=== PATIENT | female | born 1985 | race African-American/Black ===

== ENCOUNTER 2016-09-18 21:50 | Emergency (ER) | payer OTHER ==
[2016-09-18] MEDS ORDERED: 0.9 % SODIUM CHLORIDE 1,000 ML IV ONE (21:53)
--- NOTE | 2016-09-18 22:02 | ED Physician Documentation ---
General Adult - HISTORIAN Historian: patient - HPI Stated Complaint: body pain Chief Complaint: General Adult Onset: hours Timing: still present Severity: moderate Further Comments: yes (Pt is a 31 yo aa female who states that she has hx sickle cell disease and presents with generalized body pain. Pt has had no recent illness, no sore throat or cough. No fever.) - ROS CONST: weakness, other (generalized "all over" body pain) EYES/ENT: none CVS/RESP: none GI/: none MS/SKIN/LYMPH: none - PAST HX Past History: other (sickle cell) Surgeries/Procedures: Allergies/Adverse Reactions: Allergies Allergy/AdvReac Type Severity Reaction Status Date / Time No Known Allergies Allergy Verified 09/18/16 22:29 Home Medications: Ambulatory Orders Medication Instructions Recorded NK [NK] 09/18/16 - SOCIAL HX Smoking History: cigarettes - FAMILY HX Family History: Yes - VITAL SIGNS Vital Signs: Vital Signs Temp Pulse Resp BP Pulse Ox 113/70 05/24/16 11:16 - REVIEWED ASSESSMENTS Nursing Assessment Reviewed: Yes Vitals Reviewed: Yes Progress - Progress Progress: Rapid strep - neg Influenza A & B - neg Benadryl 25 mg IV NS IVF 1 L x 2 Toradol 30 mg IV Dilaudid 1 mg IV improved Sickle cells not seen on peripheral blood. - EKG/XRAY/CT XRAY: chest (negative) ED Results Lab/Radiology - Orders Orders: ED Orders Category Date Time Status CBC/PLATELET/DIFF Routine Lab 09/18/16 Ordered CMP [CMP] Routine Lab 09/18/16 Ordered 0.9 % Sodium Chloride [Normal Saline] 1,000 ml Med 09/18/16 21:53 Discontinued IV .STK-MED 0.9 % Sodium Chloride [Normal Saline] 1,000 ml Med 09/18/16 21:57 Active IV Q1H Ketorolac Tromethamine [Toradol] Med 09/18/16 21:59 Discontinued 30 mg IVP NOW ONE diphenhydrAMINE HCL [Benadryl] Med 09/18/16 21:58 Discontinued 25 mg IVP NOW ONE General Adult Physical Exam - PHYSICAL EXAM GENERAL APPEARANCE: moderate distress EENT: pharynx normal NECK: normal inspection, supple RESPIRATORY: no resp distress, chest non-tender, breath sounds normal CVS: tachycardia ABDOMEN: soft, no organomegaly, normal bowel sounds BACK: normal inspection, no CVA tenderness SKIN: warm/dry, normal color EXTREMITIES: non-tender, normal range of motion, no evidence of injury NEURO: oriented X3, motor nml, sensation nml Discharge Home Medications: Ambulatory Orders NK [NK] 09/18/16
[2016-09-18 22:24] LABS: BASOPHILS % 0.3 (0.0-1.5); EOSINOPHILS % 2.6 % (0.0-6.8); MEAN CORPUSCULAR HEMOGLOBIN 29.3 pg (28.0-34.0); MEAN CORPUSCULAR VOLUME 87.1 fl (80.0-100.0); MONOCYTES % 4.2 % (0.0-11.0); NEUTROPHILS # 8.1 # k/uL (1.4-7.7)
[2016-09-18 22:41] LABS: eGFR (African) > 60; eGFR (Non-African) > 60
[2016-09-18] MEDS: diphenhydrAMINE HCL 50 MG/ML VIAL IVP ONE (22:51)
[2016-09-18] MEDS: 0.9 % SODIUM CHLORIDE 1,000 ML IV ONE ×2 (22:51→23:09)
[2016-09-18] MEDS: HYDROmorphone HCL/PF 1 MG/ML DISP.SYRIN IVP ONE (22:52)
[2016-09-18] MEDS: KETOROLAC TROMETHAMINE 30 MG/1ML VIAL IVP ONE (22:52)
[2016-09-18] MEDS: VANCOMYCIN HCL 1.25 GM in 0.9 % SODIUM CHLORIDE 500 ML IV ONE (22:53)
--- NOTE | 2016-09-18 23:38 | Diagnostic Imaging Report ---
AURA JUAN [facility] [address] [facility] [address] [address] Report Submission Date: Sep 18, 2016 11:24:32 PM CDT Patient Study Name: MARTA LEON Date: Sep 18, 2016 11:13:13 PM CDT Modality Type: CR Gender: M Description: CHEST : 83 Institution: [facility] Physician: AURA JUAN Portable view chest Clinical history: Short of breath Findings: Heart size is within normal limits. No pleural effusion, pneumothorax or alveolar consolidation. Impression: Negative Electronically signed on Sep 18, 2016 11:24:32 PM CDT by: Dank BAILEY
[2016-09-19] MEDS ORDERED: 0.9 % SODIUM CHLORIDE 500 ML IV ONE (00:10)
[2016-09-19] MEDS: 0.9 % SODIUM CHLORIDE 500 ML IV ONE (00:14)
[2016-09-19] MEDS: HYDROmorphone HCL/PF 1 MG/ML DISP.SYRIN IVP ONE (00:19)
[2016-09-19 01:13] VITALS: BP 117/70
== END 2016-09-19 01:00 ==
LOC: ED 21:50
DX: D57.80 Other sickle-cell disorders without crisis (principal); R52 Pain, unspecified
CPT/HCPCS: 71010; 80053; 84443; 85025; 87070; 87400; 87880; J1170; J1200; J1885; J7030; J7060; 96361; 96374; 96375; 99283; S1016

== ENCOUNTER 2017-01-19 17:01 | Emergency (ER) | payer SELFPAY ==
--- NOTE | 2017-01-19 17:17 | ED Physician Documentation ---
General Adult - HISTORIAN Historian: patient - HPI Stated Complaint: R arm pain Chief Complaint: General Adult Onset: days ago Timing: still present Severity: moderate Further Comments: yes (Pt is a 31 yo female with R arm pain. Pain is medial to elbow and just distal to the elbow. 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 She says she uses the dust deshpande, holding it in a specific way all day long, and that pain first began to occur when she was doing this.) - ROS CONST: no problems EYES/ENT: none CVS/RESP: none GI/: none MS/SKIN/LYMPH: other (R arm pain) - PAST HX Past History: other (anxiety/depression) Surgeries/Procedures: other (R wrist surgery) Allergies/Adverse Reactions: Allergies Allergy/AdvReac Type Severity Reaction Status Date / Time No Known Allergies Allergy Verified 01/19/17 17:14 Home Medications: Ambulatory Orders Medication Instructions Recorded NK [NK] 09/18/16 - SOCIAL HX Smoking History: cigarettes - FAMILY HX Family History: No - VITAL SIGNS Vital Signs: Vital Signs Temp Pulse Resp BP Pulse Ox 117/70 09/19/16 01:10 - REVIEWED ASSESSMENTS Nursing Assessment Reviewed: Yes Vitals Reviewed: Yes Progress - Progress Progress: Toradol 60 mg IM Medial Epicondylitis, R elbow. Ibuprofen 200 mg. Take 3 tablets by mouth every 8 hrs with food. NITHIN wrap (like tennis elbow strap) Tennis elbow strap. General Adult Physical Exam - PHYSICAL EXAM GENERAL APPEARANCE: moderate distress NECK: normal inspection, supple RESPIRATORY: no resp distress, chest non-tender, breath sounds normal CVS: reg rate & rhythm, heart sounds normal BACK: normal inspection SKIN: warm/dry, normal color EXTREMITIES: other (tenderness medial epicondyle, increased with forearm supination against resistance) NEURO: oriented X3, motor nml, sensation nml Discharge Clincal Impression: Medial epicondylitis, right elbow Referrals: Primary Doctor,No [Primary Care Provider] - Home Medications: Ambulatory Orders NK [NK] 09/18/16 Condition: Stable Disposition: 01 HOME, SELF-CARE Decision to Admit: NO Decision Time: 18:22
[2017-01-19] MEDS: KETOROLAC TROMETHAMINE 60 MG/2 ML VIAL IM ONE (17:30)
--- NOTE | 2017-01-19 18:12 | Diagnostic Imaging Report ---
CHANDLER DUNCAN [facility] [address] [facility].[address] [address] Report Submission Date: Jan 19, 2017 6:08:45 PM CDT Patient Study Name: MARTA LEON Date: Jan 19, 2017 5:54:16 PM CDT Modality Type: CR Gender: M Description: UPPER EXTREMITY : 83 Institution: [facility] Physician: CHANDLER DUNCAN Examination: Plain film elbow History: Elbow discomfort Comparison exams: None provided Findings: 2 views of the elbow demonstrate normal cortical margins. No fracture. No dislocation. Radial head is within normal limits. No joint effusion Impression: No acute osseous abnormality. Electronically signed on Jan 19, 2017 6:08:45 PM CDT by: Willie BAILEY
[2017-01-19 18:49] VITALS: BP 120/74
== END 2017-01-19 18:43 | disposition home or self-care (01) ==
LOC: ED 17:01
DX: M77.01 Medial epicondylitis, right elbow (principal)
CPT/HCPCS: 73070; J1885; 96372; 99283

== ENCOUNTER 2017-03-26 14:06 | Emergency (ER) | payer SELFPAY ==
--- NOTE | 2017-03-26 14:10 | ED Physician Documentation ---
General Adult - HISTORIAN Historian: patient - HPI Stated Complaint: Nausea/vomiting Chief Complaint: General Adult Onset: hours Timing: still present Severity: moderate Further Comments: yes (Pt is a 31 yo female with n/v and generalized body ache. Pt states that she has a hx sickle cell anemia, but it is unclear if this dx is correct or if she may have sickle cell trait. Pt has not had cough or fever or urinary sx. Pt has not had joint pain per se.) - ROS CONST: other (malaise, body ache) EYES/ENT: none CVS/RESP: none GI/: vomiting, nausea MS/SKIN/LYMPH: none - PAST HX Past History: other (possible sickle cell or sickle cell trait) Surgeries/Procedures: Allergies/Adverse Reactions: Allergies Allergy/AdvReac Type Severity Reaction Status Date / Time No Known Allergies Allergy Verified 03/26/17 14:39 Home Medications: Ambulatory Orders Medication Instructions Recorded Ciprofloxacin HCl [Cipro] 500 mg PO BID #14 tablet 03/26/17 - SOCIAL HX Smoking History: cigarettes - FAMILY HX Family History: No - VITAL SIGNS Vital Signs: Vital Signs Temp Pulse Resp BP Pulse Ox 120/74 01/19/17 18:43 - REVIEWED ASSESSMENTS Nursing Assessment Reviewed: Yes Vitals Reviewed: Yes Progress - Progress Progress: 1 L NS IVF Zofran 4 mg IV CBC showed normal indices, with no evidence of sickle cells on peripheral smear. U/A - pos nitrites, 1+ leuk Rx Cipro 500 mg po bid x 7 days. General Adult Physical Exam - PHYSICAL EXAM GENERAL APPEARANCE: mild distress EENT: pharynx normal NECK: normal inspection, supple RESPIRATORY: no resp distress, chest non-tender, breath sounds normal CVS: reg rate & rhythm, heart sounds normal ABDOMEN: soft, no organomegaly, normal bowel sounds BACK: normal inspection, no CVA tenderness SKIN: warm/dry, normal color EXTREMITIES: non-tender, normal range of motion, no evidence of injury NEURO: oriented X3, motor nml, sensation nml Discharge Clincal Impression: UTI (urinary tract infection) Qualifiers: Urinary tract infection type: site unspecified Hematuria presence: without hematuria Qualified Code(s): N39.0 - Urinary tract infection, site not specified Prescriptions: Ciprofloxacin HCl [Cipro] 500 mg PO BID #14 tablet Referrals: Primary Doctor,No [Primary Care Provider] - Condition: Good Disposition: HOME, SELF-CARE Decision to Admit: NO Decision Time: 16:00
[2017-03-26] MEDS: ONDANSETRON HCL/PF 4 MG/ 2ML VIAL IVP ONE (14:30)
[2017-03-26 14:46] LABS: BASOPHILS % 0.4 (0.0-1.5); EOSINOPHILS % 1.8 % (0.0-6.8); MEAN CORPUSCULAR HEMOGLOBIN 28.8 pg (28.0-34.0); MONOCYTES % 3.5 % (0.0-11.0); NEUTROPHILS # 3.9 # k/uL (1.4-7.7)
[2017-03-26] MEDS: 0.9 % SODIUM CHLORIDE 1,000 ML IV ONE (14:50)
[2017-03-26 15:01] LABS: eGFR (African) > 60; eGFR (Non-African) > 60
[2017-03-26 15:42] LABS: APPEARANCE,URINE CLOUDY (CLEAR); COLOR,URINE YELLOW (YELLOW); OCCULT BLOOD,URINE NEGATIVE (NEGATIVE); UROBILINOGEN URINE 0.2 Eu (0.2-1.0)
[2017-03-26 16:03] VITALS: BP 121/78
== END 2017-03-26 15:59 | disposition home or self-care (01) ==
LOC: ED 14:06
DX: N39.0 Urinary tract infection, site not specified (principal)
CPT/HCPCS: 80053; 81002; 81025; 85025; 87086; J2405; J7030; 87186; 96361; 96374; 99283; S1016

== ENCOUNTER 2017-04-07 19:20 | Emergency (ER) | payer SELFPAY ==
[2017-04-07] MEDS ORDERED: KETOROLAC TROMETHAMINE 60 MG/2 ML VIAL IM ONE (19:46)
[2017-04-07] MEDS ORDERED: ORPHENADRINE CITRATE 60 MG/2ML IM ONE (19:46)
--- NOTE | 2017-04-07 19:48 | ED Physician Documentation ---
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 Denies any injury, c/o heavy lifting at work.) - ROS CONST: no problems CVS/RESP: none EYES/ENT: none MS/SKIN/LYMPH: none Neuro/Psych: none - PAST HX Past History: other (possible sickle cell trait) Surgeries/Procedures: Allergies/Adverse Reactions: Allergies Allergy/AdvReac Type Severity Reaction Status Date / Time No Known Allergies Allergy Verified 04/07/17 19:37 - SOCIAL HX Smoking History: cigarettes - FAMILY HX Family History: denies: none - VITAL SIGNS Vital Signs: Vital Signs Temp Pulse Resp BP Pulse Ox 99.1 F 107 H 16 138/81 97 04/07/17 19:25 04/07/17 19:25 04/07/17 19:25 04/07/17 19:25 04/07/17 19:25 - REVIEWED ASSESSMENTS Nursing Assessment Reviewed: Yes Vitals Reviewed: Yes Progress - Progress Progress: Patient requested work excuse for tomorrow. ED Results Lab/Radiology - Orders Orders: ED Orders Category Date Time Status Ketorolac Tromethamine [Toradol] Med 04/07/17 19:46 Discontinued 60 mg IM NOW ONE Orphenadrine Citrate [Norflex] Med 04/07/17 19:46 Discontinued 60 mg IM NOW ONE Low Back Pain/Injury - Physical Exam General Appearance: mild distress EENT: eye inspection normal, AYLEEN Resp/CVS: chest non-tender, breath sounds nml, heart sounds nml, no resp. distress, lungs clear, reg. rate & rhythm Back: muscle spasm, other (lumbar discomfort in paraspinous muscles with palpation; ). No: vertebral point-tendernes Neuro/Psych: oriented x3, motor nml, sensation nml, bilat. 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 You may use Tylenol every 4hour as needed for pain. Limit your dose to less than 4 G per day. Do not take ibuprofen, aleve, naproxen or any other NSAID while you are on toradol. You may want to try massage, over the counter lidocaine patches, biofreeze, beau gamble or aspercream . Condition: Stable Disposition: 01 HOME, SELF-CARE Decision to Admit: NO Decision Time: 19:58
[2017-04-07 20:38] VITALS: BP 138/81
[2017-04-08] MEDS ORDERED: LEVALBUTEROL HCL 1.25 MG/3 ML AMPUL.NEB NEB ONE (06:52)
== END 2017-04-07 20:05 | disposition home or self-care (01) ==
LOC: ED 19:20
DX: M54.5 Low back pain (principal); M79.1 Myalgia
CPT/HCPCS: J1885; J2360; 96372; 99283

== ENCOUNTER 2017-04-15 16:05 | Emergency (ER) | payer SELFPAY ==
--- NOTE | 2017-04-15 17:29 | ED Physician Documentation ---
Sore Throat/Dental Pain - HISTORIAN Historian: patient - HPI Stated Complaint: dental pain Chief Complaint: Dental Pain Onset: days ago (4 days), other Associated Symptoms: denies: fever, chills Worsened By: nothing Further Comments: yes (4 day history of dentla pain. No precipitating factor noted. Denies . Has been taking ibuprofen for the pain, not sure how much.) - ROS CONST: no problems - PAST HX Past History: none Other History: none Allergies/Adverse Reactions: Allergies Allergy/AdvReac Type Severity Reaction Status Date / Time No Known Allergies Allergy Verified 04/15/17 16:16 Home Medications: Ambulatory Orders Medication Instructions Recorded Baclofen 10 mg PO TID PRN #30 tablet 04/07/17 Ketorolac Tromethamine [Toradol] 10 mg PO TID #15 tablet 04/07/17 Clindamycin HCl [Cleocin] 300 mg PO QID #28 capsule 04/15/17 Meloxicam [Mobic] 7.5 mg PO BID PRN #30 tablet 04/15/17 - SOCIAL HX Smoking History: less than 1 pack/day (1/2 ppd) Alcohol Use: none Drug Use: none - FAMILY HX Family History: Yes - VITAL SIGNS Vital Signs: Vital Signs Temp Pulse Resp BP Pulse Ox 98.3 F 89 14 135/77 97 04/15/17 16:06 04/15/17 16:06 04/15/17 16:06 04/15/17 16:06 04/15/17 16:06 - REVIEWED ASSESSMENTS Nursing Assessment Reviewed: Yes Vitals Reviewed: Yes Dental Pain Physical Exam - EXAM General Appearance: alert, mild distress Mouth/Throat: lips nml, pharynx nml, gum swelling around teeth (front bottom right incisor, tenderness and swelling to the area.) Ear/Nose: nml inspection Respiratory: no resp. distress, breath sounds nml. No: wheezes, rales, rhonchi CVS: reg. rate & rhythm Skin: warm/dry, normal color Neuro/Psych: other (normal mentation) Discharge Clincal Impression: Pain, dental Prescriptions: Clindamycin HCl [Cleocin] 300 mg PO QID #28 capsule Meloxicam [Mobic] 7.5 mg PO BID PRN #30 tablet PRN Reason: Pain Referrals: Primary Doctor,No [Primary Care Provider] - 2 Days Additional Instructions: Take medication as instructed, Rinse mouth with salt water. If not better in the next several days to see a dentist. Condition: Stable Decision to Admit: NO Date of Decison to Admit: 04/15/17 Decision Time: 17:41
[2017-04-15 18:06] VITALS: BP 128/74
== END 2017-04-15 18:03 ==
LOC: ED 16:05
DX: K08.89 Other specified disorders of teeth and supporting structures (principal)
CPT/HCPCS: 99283

== ENCOUNTER 2017-05-25 12:23 | Emergency (ER) | payer SELFPAY ==
[2017-05-25 12:55] VITALS: BP 129/90
[2017-05-25] MEDS ORDERED: LORATADINE 10 MG TABLET PO ONE (12:56)
[2017-05-25] MEDS ORDERED: diphenhydrAMINE HCL 50 MG/ML VIAL IM ONE (12:56)
--- NOTE | 2017-05-25 13:08 | ED Physician Documentation ---
Skin Rash - HISTORIAN Historian: patient - HPI Stated Complaint: swelling on arm and buttocks Chief Complaint: Skin Rash Onset: days ago (2) Timing: still present Location: RUE, other (buttock) Identified Cause?: No Where: home Context: Medication Exposure: none Context: Food Exposure: none Further Comments: yes (31 year old female patient presents with rash on RUE and left buttock. Patient complains of itching, reports symptoms started 2 days ago , denies exposure to new soaps, lotions, detergents, foods or chemicals. 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.) - ROS CONST: none CVS/RESP: none EYES/ENT: none GI/: none MS/SKIN/LYMPH: none NEURO/PSYCH: none - PAST HX Past History: other (sickle cell) Allergies/Adverse Reactions: Allergies Allergy/AdvReac Type Severity Reaction Status Date / Time No Known Allergies Allergy Verified 05/25/17 12:55 Home Medications: Ambulatory Orders Medication Instructions Recorded Sulfamethoxazole/Trimethoprim 1 each PO BID #14 tab 05/25/17 [Bactrim Ds] - SOCIAL HX Smoking History: cigarettes - FAMILY HX Family History: denies: none - VITAL SIGNS Vital Signs: Vital Signs Temp Pulse Resp BP Pulse Ox 98.5 F 74 16 129/90 100 05/25/17 12:25 05/25/17 12:25 05/25/17 12:25 05/25/17 12:25 05/25/17 12:25 - REVIEWED ASSESSMENTS Nursing Assessment Reviewed: Yes Vitals Reviewed: Yes Progress - Progress Progress: Medicated with loratadine and Benadryl while in ER. Difficult to determine cellulitis vs urticaria. 1400 No change after Benadryl IM and loratadine. Will treat as cellulitis and have patient follow up with PCP. ED Results Lab/Radiology - Orders Orders: ED Orders Category Date Time Status Loratadine [Claritin] Med 05/25/17 12:56 Discontinued 10 mg PO NOW ONE diphenhydrAMINE HCL [Benadryl] Med 05/25/17 12:56 Discontinued 25 mg IM NOW ONE Skin Rash Physical Exam - EXAM General Appearance: mild distress Skin: warm,dry, skin rash Location: extremities (RUE - upper arm), other (left buttock) Character: maculopapular, urticarial, erythematous Symptoms: warmth, tenderness, swelling, well defined border, inflammation. No: lymphangitis, thickening, weeping, crusting, rough texture, sand paper like, skin-line distribution like pityriasis rosea Respiratory: no resp distress, chest non-tender, breath sounds normal CVS: reg. 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 You may use over the counter benadrly cream for itching. If no improvement follow up with PCP on Friday. Condition: Stable Disposition: HOME, SELF-CARE Decision to Admit: NO Decision Time: 13:53
== END 2017-05-25 14:00 | disposition home or self-care (01) ==
LOC: ED 12:23
DX: L03.319 Cellulitis of trunk, unspecified (principal); L03.119 Cellulitis of unspecified part of limb
CPT/HCPCS: 96372; 99282; J1200

== ENCOUNTER 2017-10-04 16:54 | Emergency (ER) | payer SELFPAY ==
[2017-10-04 17:15] VITALS: BP 125/74
--- NOTE | 2017-10-04 17:23 | ED Physician Documentation ---
Upper Extremity Injury - HISTORIAN Historian: patient - HPI Stated Complaint: L hand pain Chief Complaint: Upper Extremity Problem Additional Information: Patient states for the last 2 week she has been having an achy feeling in her hand, over the last 2 days has been having some pain in the wrist and hands area. No history of any trauma. Has been having some mild swelling in the . Onset: other (several days) Severity: mild Duration: persistent since Context: denies: fall, blow, incision Associated Symptoms: denies: tingling, numbness distally, feeling loss, loss of power to arms Modifying Factors: pain on movement - ROS CONST: no problems. denies: fever, chills - PAST HX Past History: Lt handed Immunizations: referred to PCP Allergies/Adverse Reactions: Allergies Allergy/AdvReac Type Severity Reaction Status Date / Time No Known Allergies Allergy Verified 10/04/17 17:07 Home Medications: Ambulatory Orders Medication Instructions Recorded Meloxicam [Mobic] 7.5 mg PO BID PRN #30 tablet 10/04/17 - SOCIAL HX Smoking History: less than 1 pack/day Alcohol Use: none Drug Use: none - FAMILY HX Family History: other (arthritis not sure what type) - VITAL SIGNS Vital Signs: Vital Signs Temp Pulse Resp BP Pulse Ox 98.1 F 84 18 125/74 97 10/04/17 17:44 10/04/17 17:44 10/04/17 17:44 10/04/17 17:44 10/04/17 17:44 - REVIEWED ASSESSMENTS Nursing Assessment Reviewed: Yes Vitals Reviewed: Yes Upper Extremity Injury Physic - Physical Exam General Appearance: alert, mild distress Hand: no evidence of injury, normal ROM, soft tissue tenderness (generalized tenderness over the hand area, no bony abnl noted. ), swelling (mild diffuse swelling to hand). No: deformity, ecchymosis, limited ROM Wrist: normal inspection, no evidence of injury, normal ROM, soft tissue tenderness (over ulnar aspect) Elbow/Forearm: normal inspection, non-tender, no evidence of injury, normal ROM , abrasions Neuro/Vascular/Tendon: no vascular compromise. No: motor nml, sensation nml Resp/CVS: chest non-tender, breath sounds nml, heart sounds nml, no resp. distress, lungs clear, reg. rate & rhythm Discharge Clincal Impression: Arthralgia Qualifiers: Joint pain location: hand Laterality: left Qualified Code(s): M25.542 - Pain in joints of left hand Prescriptions: Meloxicam [Mobic] 7.5 mg PO BID PRN #30 tablet PRN Reason: Pain Referrals: Primary Doctor,No [Primary Care Provider] - 2 Days Additional Instructions: Take Meloxicam 7.5mg twice a day with food. Try a warm compress to the area. I advised you to get labs and x-rays done but you preferred to get them done in [place]. If your symptoms get worse to return to the ED. Condition: Stable Disposition: 01 HOME, SELF-CARE Decision to Admit: NO Date of Decison to Admit: 10/04/17 Decision Time: 17:31
== END 2017-10-04 17:44 | disposition home or self-care (01) ==
LOC: ED 16:54
DX: M25.542 Pain in joints of left hand (principal)
CPT/HCPCS: 99282

== ENCOUNTER 2017-11-19 18:29 | Emergency (ER) | payer SELFPAY ==
[2017-11-19] MEDS ORDERED: 0.9 % SODIUM CHLORIDE 0 ML IV ONE (18:54)
[2017-11-19] MEDS ORDERED: KETOROLAC TROMETHAMINE 30 MG/1ML VIAL IVP ONE (19:17)
--- NOTE | 2017-11-19 19:22 | ED Physician Documentation ---
General Adult - HISTORIAN Historian: patient - HPI Stated Complaint: DEHYDRATION Chief Complaint: General Adult Additional Information: Says she has sharp, stabbing L upper DP that is worse with deep breath. Also has all over body aches. Symptoms began yesterday. Took a vicodin or percocet an hour ago that hasn't helped. LNMP a month ago. Hasn't taken he rmeds for months as she can't afford them - ROS CONST: no problems. denies: fever - PAST HX Past History: other (Sickle [place], Bipolar. ) Allergies/Adverse Reactions: Allergies Allergy/AdvReac Type Severity Reaction Status Date / Time No Known Allergies Allergy Verified 11/19/17 19:04 Home Medications: Ambulatory Orders Medication Instructions Recorded NK [NK] 11/19/17 - SOCIAL HX Smoking History: non-smoker - FAMILY HX Family History: No - VITAL SIGNS Vital Signs: Vital Signs Temp Pulse Resp BP Pulse Ox 97.6 F 80 18 117/70 98 11/19/17 18:45 11/19/17 18:45 11/19/17 18:45 11/19/17 18:45 11/19/17 18:45 - REVIEWED ASSESSMENTS Nursing Assessment Reviewed: Yes Vitals Reviewed: Yes Progress - Progress Progress: Has been sleeping since toradol. IV fluids infusing. ED Results Lab/Radiology - Orders Orders: ED Orders Category Date Time Status CBC/PLATELET/DIFF Routine Lab 11/19/17 Ordered CMP Routine Lab 11/19/17 Ordered DRUG SCREEN 8,URINE Stat Lab 11/19/17 Ordered SERUM HCG Stat Lab 11/19/17 Ordered URINALYSIS Routine Lab 11/19/17 Ordered 0.9 % Sodium Chloride [Normal Saline] 1,000 ml Med 11/19/17 18:54 Discontinued IV .STK-MED Ketorolac Tromethamine [Toradol] Med 11/19/17 19:17 Once 30 mg IVP NOW ONE General Adult Physical Exam - PHYSICAL EXAM GENERAL APPEARANCE: moderate distress EENT: eye inspection normal, pharynx normal NECK: normal inspection, supple RESPIRATORY: no resp distress, breath sounds normal CVS: reg rate & rhythm, heart sounds normal, other (CP reproducible with palpation) ABDOMEN: soft, normal bowel sounds, non-tender BACK: normal inspection, no CVA tenderness, other (no vertebral tenderness) SKIN: warm/dry, normal color EXTREMITIES: non-tender, no evidence of injury NEURO: CN's nml as tested, motor nml, sensation nml, cognition normal Discharge Clincal Impression: Generalized body aches Referrals: Primary Doctor,No [Primary Care Provider] - 2 Days Additional Instructions: Drink more water. Make an appointment to see your provider in the next 2-3 weeks. Condition: Good Disposition: 01 HOME, SELF-CARE Decision to Admit: NO Decision Time: 21:45
[2017-11-19 19:51] LABS: BASOPHILS % 0.4 (0.0-1.5); EOSINOPHILS % 1.9 % (0.0-6.8); MEAN CORPUSCULAR HEMOGLOBIN 28.9 pg (28.0-34.0); MEAN CORPUSCULAR VOLUME 87.1 fl (80.0-100.0); MONOCYTES % 3.9 % (0.0-11.0); NEUTROPHILS # 3.4 # k/uL (1.4-7.7)
[2017-11-19] MEDS ORDERED: 0.9 % SODIUM CHLORIDE 1,000 ML IV ONE (20:03)
[2017-11-19 20:04] LABS: eGFR (African) > 60; eGFR (Non-African) > 60
[2017-11-19 22:14] VITALS: BP 124/77
== END 2017-11-19 22:10 | disposition home or self-care (01) ==
LOC: ED 18:29
DX: R52 Pain, unspecified (principal)
CPT/HCPCS: 80053; 84703; 85025; J1885; J7030; 96365; 96375; 99284; S1016